=== PATIENT | female | born 1980 | race American Indian/Alaskan Native ===

== ENCOUNTER 2019-01-15 14:16 | Outpatient (CLI) | payer OTHER ==
--- NOTE | 2019-01-15 15:19 | XRay Report ---
LEFT TIBIA AND FIBULA TWO VIEWS: 01/15/19 14:16:00 CLINICAL: Injury and pain. FINDINGS: The proximal tibia and fibula and the knee are not included on this exam but are imaged on the x-rays taken at the same time. No fracture or dislocation. Normal soft tissues.No soft tissue air or foreign body. IMPRESSION: Normal.
--- NOTE | 2019-01-15 15:20 | XRay Report ---
XRAY LEFT KNEE 4 THREE VIEWS: 01/15/19 00:00:00 CLINICAL: Knee pain. FINDINGS: Normal bones, joints and soft tissues. No fracture or dislocation. No joint effusion. IMPRESSION: Normal.
== END 2019-01-15 14:17 | disposition home or self-care (01) ==
LOC: SPVIMAG 14:16
PROVIDERS: ATTEND Internal Medicine
DX: S89.92XA Unspecified injury of left lower leg, initial encounter (principal); X58.XXXA Exposure to other specified factors, initial encounter; Y93.89 Activity, other specified; Y92.89 Other specified places as the place of occurrence of the external cause; Y99.8 Other external cause status